=== PATIENT | male | born 1995 | race Two or more races ===

== ENCOUNTER 2023-08-17 11:22 | Emergency (ER) | payer OTHER ==
[~2023-08-17] VITALS: Ht 165.1 cm; Wt 61.2 kg
[2023-08-17] MEDS ORDERED: DEXAMETHASONE SODIUM PHOSPHATE 4 MG/ML VIAL IM STA (12:55)
[2023-08-17] MEDS ORDERED: ORPHENADRINE CITRATE 30 MG/ML AMPUL IM STA (12:55)
[2023-08-17] MEDS ORDERED: KETOROLAC TROMETHAMINE 30 MG VIAL IM ONE (13:00)
[2023-08-17] MEDS ORDERED: NABUMETONE750 MG PO (17:21)
[2023-08-17] MEDS ORDERED: CYCLOBENZAPRINE10 MG PO (17:21)
== END 2023-08-17 17:24 | disposition home or self-care (01) ==
LOC: ER 11:22
DX: M54.2 Cervicalgia (principal); Z93.3 Colostomy status

== ENCOUNTER 2024-06-02 14:50 | Emergency (ER) | payer OTHER ==
[~2024-06-02] VITALS: Ht 165.1 cm; Wt 63.5 kg
[~2024-06-02 14:50] MED LIST: CYCLOBENZAPRINE10 MG PO; NABUMETONE750 MG PO
[2024-06-02] MEDS ORDERED: 0.9 % SODIUM CHLORIDE 500 ML IV STA (16:24)
[2024-06-02] MEDS ORDERED: DICYCLOMINE HCL 20 MG TABLET PO SCH (16:30)
[2024-06-02] MEDS ORDERED: FAMOTIDINE/PF 20 MG/2 ML VIAL IV ONE (16:30)
[2024-06-02] MEDS ORDERED: FAMOTIDINE/PF 20 MG/2 ML VIAL ONE (17:44)
[2024-06-02] MEDS ORDERED: DICYCLOMINE HCL 10 MG CAPSULE PO ONE (17:44)
[2024-06-02 18:17] LABS: HEMATOCRIT 47.5 % (39.0-48.0); HEMOGLOBIN 16.1 g/dL (13-16.00); MEAN CORPUSCULAR HEMOGLOBIN 27.7 pg (27.00-32.0); MEAN CORPUSCULAR HGB CONC 33.8 g/dl (32.0-36.0); PLATELET COUNT 354 K/uL (150-450); RED BLOOD COUNT 5.79 M/uL (4.00-6.00); RED CELL DISTRIBUTION WIDTH 13.5 % (11.5-14.5)
[2024-06-02 19:09] LABS: ALBUMIN 4.6 gm/dL (3.4-5.0); BILIRUBIN TOTAL 0.54 mg/dL (0.3-1.2); CALCIUM 9.9 mg/dL (8.5-10.1); CREATININE SERUM 1.11 mg/dL (0.70-1.30); GFR 78.88; GLOBULINA 3.8 G/DL (2.4-3.5); POTASSIUM 3.91 mEq/L (3.5-5.1); TOTAL PROTEIN 8.4 gm/dL (6.4-8.2)
== END 2024-06-02 20:48 | disposition home or self-care (01) ==
LOC: ER 14:53
PROVIDERS: Emergency Medicine
DX: K52.9 Noninfective gastroenteritis and colitis, unspecified (principal); Z20.822 Contact with and (suspected) exposure to COVID-19